=== PATIENT | female | born 1960 | race Caucasian/White ===

== ENCOUNTER 2020-08-07 09:38 | Day surgery (SDC) | payer OTHER ==
[~2020-08-07] VITALS: Ht 170.2 cm; Wt 58.5 kg
[2020-08-07] MEDS ORDERED: DULO30CA2 PO (10:44)
[2020-08-07] MEDS ORDERED: VITAMIN C PO (10:44)
[2020-08-07] MEDS ORDERED: MV-M1TAB16 PO (10:44)
[2020-08-07] MEDS ORDERED: BUSP5TAB2 PO (10:44)
[2020-08-07] MEDS ORDERED: MULT9LIQ9 PO (10:44)
[2020-08-07 10:48] VITALS: BP 96/60
[2020-08-07] MEDS ORDERED: CHLORHEXIDINE 15 ML UDC MM ONE (11:00)
[2020-08-07] MEDS ORDERED: LACTATED RINGERS 1,000 ML IV SCH (11:00)
[2020-08-07] MEDS ORDERED: MIDAZOLAM 1 MG/ML, 2ML ONE (11:48)
[2020-08-07] MEDS ORDERED: FENTANYL PF 250 MCG/5ML ONE (11:48)
[2020-08-07] MEDS ORDERED: LIDOCAINE/PF 1%, 30ML ONE (12:02)
[2020-08-07] MEDS ORDERED: BUPIVACAINE/PF 0.25% ONE (12:02)
[2020-08-07] MEDS ORDERED: EPINEPHRINE 1 MG/ML, 1ML ONE (12:03)
[2020-08-07] MEDS ORDERED: morphine SULFATE/PF 1 MG/ML, 10ML ONE (12:03)
[2020-08-07] MEDS ORDERED: KETOROLAC 30 MG/1 ML ONE (12:26)
[2020-08-07] MEDS ORDERED: SUCCINYLCHOLINE 20 MG/ML, 10ML ONE (12:26)
[2020-08-07] MEDS ORDERED: ONDANSETRON 2MG/ML, 2ML ONE (12:26)
[2020-08-07] MEDS ORDERED: NEOSTIGMINE 1 MG/ML, 10ML ONE (12:26)
[2020-08-07] MEDS ORDERED: ROCURONIUM 10 MG/ML,10ML ONE (12:26)
[2020-08-07] MEDS ORDERED: PROPOFOL 10 MG/ML, 20ML ONE (12:26)
[2020-08-07] MEDS ORDERED: DEXAMETHASONE 4 MG/ML, 1ML ONE (12:26)
[2020-08-07] MEDS ORDERED: GLYCOPYRROLATE 0.2MG/1ML, 5ML ONE (12:26)
[2020-08-07] MEDS ORDERED: CEFAZOLIN 1,000 MG ONE (12:26)
[2020-08-07] MEDS ORDERED: ACETAMINOPHEN 325 MG TABLET PO PRN (14:00)
[2020-08-07] MEDS ORDERED: MEPERIDINE/PF 25MG/0.5ML IVPush PRN (14:00)
[2020-08-07] MEDS ORDERED: hydrALAzine 20 MG/ML, 1ML IV PRN (14:00)
[2020-08-07] MEDS ORDERED: OXYcodone 5 MG/5 ML ORAL.SOL UDC PO PRN (14:00)
[2020-08-07] MEDS ORDERED: EPHEDRINE 50 MG/ML, 1ML IVPush PRN (14:00)
[2020-08-07] MEDS ORDERED: LORazepam 2 MG/ML, 1ML IVPush PRN (14:00)
[2020-08-07] MEDS ORDERED: FENTANYL PF 100 MCG/2ML IV PRN (14:00)
[2020-08-07] MEDS ORDERED: METHOCARBAMOL 1,000 MG in DEXTROSE 5% 100 ML IV PRN (14:00)
[2020-08-07] MEDS ORDERED: PROMETHAZINE 25 MG/ML, 1ML IVPush PRN (14:00)
[2020-08-07] MEDS ORDERED: ONDANSETRON 2MG/ML, 2ML IVPush PRN (14:00)
[2020-08-07] MEDS ORDERED: LABETALOL 5MG/ML, 20ML IV PRN (14:00)
[2020-08-07] MEDS ORDERED: HYDROmorphone 1 MG/ML, 1ML INJ ONE (14:40)
[2020-08-07] MEDS ORDERED: FENTANYL PF 100 MCG/2ML ONE (14:40)
[2020-08-07] MEDS ORDERED: OXYcodone 5 MG/5 ML ORAL.SOL UDC ONE (14:40)
[2020-08-07] MEDS: HYDROmorphone 1 MG/ML, 1ML INJ IVPush PRN ×3 (14:48→15:00)
== END 2020-08-07 18:30 | disposition home or self-care (01) ==
LOC: OUT 09:38
PROVIDERS: ATTEND Orthopaedic Surgery
DX: S82.111A Displaced fracture of right tibial spine, initial encounter for closed fracture (principal); S83.281A Other tear of lateral meniscus, current injury, right knee, initial encounter; M22.41 Chondromalacia patellae, right knee; M65.861 Other synovitis and tenosynovitis, right lower leg; M24.661 Ankylosis, right knee; G89.18 Other acute postprocedural pain; F41.9 Anxiety disorder, unspecified; Z20.828 Contact with and (suspected) exposure to other viral communicable diseases; Z79.891 Long term (current) use of opiate analgesic; Z87.891 Personal history of nicotine dependence; X50.1XXA Overexertion from prolonged static or awkward postures, initial encounter; Y93.23 Activity, snow (alpine) (downhill) skiing, snowboarding, sledding, tobogganing and snow tubing; Y92.89 Other specified places as the place of occurrence of the external cause; Y99.8 Other external cause status
CPT/HCPCS: 29851; 29881; 64447; 87635; C1713; J0171; J0330; J0690; J1100; J1170; J1885; J2250; J2405; J2704; J2710; J2800; J3010; J7120; J2274